=== PATIENT | female | born 1930 | race Caucasian/White ===

== ENCOUNTER → 2017-03-15 | Day surgery (SDC) | payer MEDICARE ==
[~2017-03-15] VITALS: Ht 152.4 cm; Wt 86.9 kg
[~2017-03-15] MED LIST: AMLO5TAB2 PO; ASPI81TA11 PO; BYST10TA2 PO; CALC600T25 PO; CHLORHEXIDINE GLUCONATE 2 % 1 PACK (2 CLOTHS) TOPICAL PRN; DICY10CA12 PO; DO NOT ADM ANY ANTICOAGULANT DRUGS PRN; FERRIC SUBSULFATE 8 ML TOP SOLN TOPICAL ONE; FLUO40CA PO; FURO20TA PO; INSULIN HUMAN REGULAR 1,000 UNITS/10 ML VIAL SQ PRN; KETOROLAC TROMETHAMINE 30 MG/ML (IVP) VIAL IV PUSH PRN; LACTATED RINGER'S 1000 ML IV PRN; LISI-515 PO; METO25TA6 PO; METOPROLOL TARTRATE 25 MG TAB PO PRN; MIRT30TA PO; NAPR220C22 PO; OMEP20TA PO; ONDANSETRON HCL 4 MG/2 ML VIAL IV PUSH ONE; POTA10TA2 PO; POVIDONE IODINE 5% (ANTISEPSIS KIT) 4 APPLICATIONS EACH NARE PRN; PROPOFOL 200 MG/20 ML AMP IV ONE; RANI1TAB7 PO; SIMV20TA PO; SODIUM CHLORID 0.9% 500 ML IV PRN
[2017-03-15 11:36] VITALS: BP 162/73; PULSE 54; RESP 22; TEMP 98.3; O2SAT 98
[2017-03-15 15:29] VITALS: BP 166/75; PULSE 56; RESP 18; TEMP 97.9; O2SAT 92
--- NOTE | 2017-03-22 09:40 | MP ---
cc: BRE CHEUNG M.D., KELLY L. MD BAGWELL, MEGAN MD DATE OF SURGERY 03/15/2017 PREOPERATIVE DIAGNOSIS Postmenopausal bleeding, thickened endometrium. POSTOPERATIVE DIAGNOSIS Postmenopausal bleeding, thickened endometrium. PROCEDURE Examination under anesthesia, fractional dilation and curettage, cervix biopsies. SURGEON Meeta Ortega MD FRONT OFFICE ADMINISTRATOR Shayy first beater. ANESTHESIA Laryngeal mask anesthesia. ESTIMATED BLOOD LOSS Less than 20 cc. HISTORY An 86-year-old female with some postmenopausal bleeding found on imaging to have a fullness/mass-like effect in the endometrium, was counseled regarding options. FINDINGS On exam under anesthesia, no inguinal adenopathy. External genitalia without mass or lesion. The cervix was grossly normal in appearance, smooth circumferentially but was firm to palpation. A little bit limited mobility to the uterus and cervix without overt parametrial infiltration. No overt adnexal mass. The uterine cavity sounded to 8 cm, a small amount of tissue from the endocervix, small but moderate amount of tissue from the endometrium, gritty most surfaces of the endometrium except on the anterior lower uterine segment were it was somewhat smooth. Most of the tissue was derived. PROCEDURE The patient was taken to the operating room, placed in dorsal lithotomy position after laryngeal mask anesthesia was administered. Time-out was undertaken. She was identified by sight recognition and hospital ID bracelet and the proposed procedure was reviewed and confirmed. Exam under anesthesia was performed with findings as described above. She was prepped and draped in sterile fashion, tenaculum placed on the cervix, the uterine cavity sounded, the cervix dilated. Biopsies were taken from the ectocervix followed by sampling of the endocervix multiple passes circumferentially combined as endocervix, followed by endometrium multiple passes circumferentially tissue combined as endometrial curettings. The tenaculum was removed. Sites were rendered hemostatic with topical Monsel's solution. There were no remaining foreign objects in the vagina. Preliminary and final counts were correct. She was returned to dorsal supine position and pending reversal of anesthesia when I left the operating room to precede her to the Post Anesthesia Care Unit. MD YOANDY Salinas/VIC /7:35 AM /9:25 AM
== END | disposition home or self-care (01) ==
LOC: HSDC 10:32
PROVIDERS: ATTEND Obstetrics & Gynecology Gynecologic Oncology
DX: N95.0 Postmenopausal bleeding (principal); N89.8 Other specified noninflammatory disorders of vagina; N85.2 Hypertrophy of uterus; I10 Essential (primary) hypertension
CPT/HCPCS: 58120; 86850; 86900; 86901; 88305; 88312; 88313; 88341; 88342; J2405; J3010; J7120